=== PATIENT | male | born 1990 | race Caucasian/White ===

== ENCOUNTER 2023-04-07 08:59 | Emergency (ER) | payer OTHER ==
[2023-04-07] MEDS: predniSONE 20 MG Tab PO ONE (09:21)
== END 2023-04-07 10:04 | disposition home or self-care (01) ==
LOC: LB.ED 08:59
DX: T78.40XA Allergy, unspecified, initial encounter (principal); Z87.891 Personal history of nicotine dependence
CPT/HCPCS: 99282; J7512